=== PATIENT | female | born 1970 | race Caucasian/White ===

== ENCOUNTER 2016-08-16 21:46 | Emergency (ER) | payer OTHER ==
[~2016-08-16] VITALS: Ht 152.4 cm; Wt 50.1 kg
[~2016-08-16 21:46] MED LIST: ATARAX,VISTARIL25 MG PO; MAXALT5 MG PO
[2016-08-16 22:53] LABS: HEMATOCRIT 37.7 % (36.0-46.0); MCH 29.3 PG (29.0-34.0); MCHC 33.7 G/DL (30.0-36.0); MCV 86.9 FL (83-99); MEAN PLAT.VOLUME 9.5 uM^3 (9.5-12.4); PLATELET COUNT 216 K/uL (156-360); RBC DIS.WIDTH-CV 12.9 % (11.8-14.6); RBC DIS.WIDTH-SD 40.8 % (39-53); RED BLOOD COUNT 4.34 M/uL (3.80-5.20); WHITE BLOOD COUNT 7.1 K/uL (4.1-10.2)
[2016-08-16 23:07] LABS: CHLORIDE 106 mEq/L (99-109); POTASSIUM 4.2 mEq/L (3.7-5.4); SODIUM 140 mEq/L (136-147)
[2016-08-16 23:09] LABS: GLUCOSE 98 mg/dL (70-99)
[2016-08-16 23:10] LABS: ANION GAP 6 MEQ/L (2-14)
[2016-08-16 23:11] LABS: TOTAL BILIRUBIN 0.4 mg/dL (0.0-1.0)
[2016-08-16 23:12] LABS: ALKALINE PHOSPHATASE 73 IU/L (3-129)
[2016-08-16 23:13] LABS: GFR ESTIMATE (CALCULATED) > 59 mL/min/
[2016-08-16 23:14] LABS: UREA NITROGEN (BUN) 7 mg/dL (9-23)
[2016-08-16 23:24] LABS: QUANTITATIVE HCG < 4.0 MIU/ML
[2016-08-17 00:50] VITALS: BP 119/87
== END 2016-08-17 01:02 | disposition home or self-care (01) ==
LOC: EME 21:46
DX: N95.0 Postmenopausal bleeding (principal); N83.201 Unspecified ovarian cyst, right side
CPT/HCPCS: 76856; 80053; 81003; 84702; 85027; 99281; 99284

== ENCOUNTER 2017-08-23 14:38 | Emergency (ER) | payer OTHER ==
[~2017-08-23] VITALS: Ht 154.9 cm; Wt 49.1 kg
[2017-08-23] MEDS ORDERED: AMOXICILLIN875 MG PO (16:23)
[2017-08-23] MEDS ORDERED: DIFLUCAN150 MG PO (16:35)
[2017-08-23 16:39] VITALS: BP 127/90
== END 2017-08-23 16:39 | disposition home or self-care (01) ==
LOC: EME 14:38
PROC: 09C0XZZ Extirpation of Matter from Right External Ear, External Approach (ICD-10-PCS; principal; 2017-08-23)
DX: H66.91 Otitis media, unspecified, right ear (principal); H61.21 Impacted cerumen, right ear; F41.9 Anxiety disorder, unspecified; F42.9 Obsessive-compulsive disorder, unspecified
CPT/HCPCS: 99281; 99284